=== PATIENT | female | born 1945 | race Caucasian/White ===

== ENCOUNTER 2024-11-13 09:40 | Outpatient (OUT) | payer MEDICARE, SELFPAY ==
--- NOTE | 2024-11-11 11:21 | V.VEINS.HP ---
Vital Signs 11/13/24 09:57 Height 4 ft 11 in Weight 49.895 kg BMI 22.2 BP 112/62 BP Location Left Brachial BP Position Sitting BP Cuff Size Adult BP Source Automatic Cuff Respiration 18 Pulse 56 L Pulse Source Monitor Pulse Oximetry (%) 99 Oxygen Delivery Method Room Air Varicose Veins Patient is a 79 year old female in this day as a referral from Dr. Ayers secondary to varicose vein disease, edema, and pain to bilateral lower legs. Patient c/o bilateral leg pain and achiness and heaviness for approximately one year. Patient as not worn bilateral leg knee high compression stockings, yet is willing to purchase them and wear them accordingly. Patient has a family history varicose vein disease in her mother. Patient has not had any varicose vein treatments nor has she had any issues with blood clots in the past. Zhao Scott MD personally performed the services described in this documentation, as scribed by Chapito Taylor RN in my presence and it is both accurate and complete. IChapito RN, am scribing for, and in the presence of, Dr. Zhao Kumar and in the presence of the patient. thigh: bilateral (symptoms left leg > right leg), knee: bilateral, calf: bilateral, ankle: bilateral and hines: bilateral aching, dull and tender 8 one year Worsened in recent months: Yes standing analgesics and elevating extremities Reports fatigue, heaviness and limb pain History of lower extremity trauma: No Superficial thrombophlebitis: No Family history of varicose veins: yes Has patient had previous lower extremity venous surgery: No Patient has previously received the following treatment(s) for lower extremity varicose veins: Reports none Does patient have a history of : yes Does patient intend to have future pregnancies: no Has patient had lower extremity venous scan with relux testing: No Support hose used: No Problems walking or doing physical activity: Yes How does it affect you: often has to set and elevate legs due to pain Do you walk much: Yes Do you stand much: Yes Review of Systems ROS Narrative Zhao Scott MD personally performed the services described in this documentation, as scribed by Chapito Taylor RN in my presence and it is both accurate and complete. Chapito Scott RN, am scribing for, and in the presence of, Dr. Zhao Kumar and in the presence of the patient. 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 - Other diseases of salivary glands (ICD-10) delivery delivered ?O82 - Encounter for delivery without indication (ICD-10) Cataract ?H26.9 - Unspecified cataract (ICD-10) Thrombocytopenia ?D69.6 - Thrombocytopenia, unspecified (ICD-10) Osteopenia ?M85.80 - Other specified disorders of bone density and structure, unspecified site (ICD-10) Lymphoma ?C85.90 - Non-Hodgkin lymphoma, unspecified, unspecified site (ICD-10) Lumbar radiculopathy ?M54.16 - Radiculopathy, lumbar region (ICD-10) Lumbago ?M54.50 - Low back pain, unspecified (ICD-10) Hyperlipidemia ?E78.5 - Hyperlipidemia, unspecified (ICD-10) Hypertension ?I10 - Essential (primary) hypertension (ICD-10) Cerumen impaction ?H61.20 - Impacted cerumen, unspecified ear (ICD-10) Arthralgia ?M25.50 - Pain in unspecified joint (ICD-10) Anxiety ?F41.9 - Anxiety disorder, unspecified (ICD-10) Varicose veins of bilateral lower extremities with pain ?I83.813 - Varicose veins of bilateral lower extremities with pain (ICD-10) Surgical History (Updated 11/13/24 @ 07:37 by Chapito Taylor) History of tonsillectomy and adenoidectomy ?Z90.89 - Acquired absence of other organs (ICD-10) H/O: hysterectomy ?Z90.710 - Acquired absence of both cervix and uterus (ICD-10) History of cholecystectomy ?Z90.49 - Acquired absence of other specified parts of digestive tract (ICD-10) Hx of appendectomy ?Z90.49 - Acquired absence of other specified parts of digestive tract (ICD-10) Family History (Updated 11/13/24 @ 10:08 by Chapito Taylor) Other Family history of cancer Family history of hypertension Pain due to varicose veins of both lower extremities Social History (Updated 11/13/24 @ 10:09 by Chapito Taylor) Within the past year, how often did you have a drink containing alcohol: never Score interpretation: A score less than 3 is consistent with normal alcohol consumption. Smoking status: Never smoker Non-prescribed substance use: denies use Meds Home Medications and Allergies Home Medications ?Medication ?Instructions ?Recorded ?Confirmed ?Type alendronate 70 mg tablet 70 mg PO QWEEK 11/13/24 11/13/24 History calcium citrate 150 mg capsule mg PO 11/13/24 History magnesium glycinate (LC-655) mg PO 11/13/24 History metoprolol tartrate 50 mg tablet 50 mg PO BID 11/13/24 11/13/24 History pravastatin 20 mg tablet 20 mg PO DAILY 11/13/24 11/13/24 History Allergies Allergy/AdvReac Type Severity Reaction Status Date / Time No Known Drug Allergies Allergy Verified 11/13/24 07:40 Exam Narrative Exam Narrative: Zhao Scott MD personally performed the services described in this documentation, as scribed by Chapito Taylor RN in my presence and it is both accurate and complete. Chapito Scott RN, am scribing for, and in the presence of, Dr. Zhao Kumar and in the presence of the patient. Constitutional Documenting provider has reviewed patient's vital signs: yes Common normals: oriented x3 Cardio Peripheral pulses: posterior tibial pulses present and dorsalis pedis pulses present Extremity Common normals: normal capillary refill General: calf tenderness and edema Right lower extremity: lower leg Right lower leg: inspection and palpation Left lower extremity: lower leg Left lower leg: inspection and palpation Neuro Common normals: oriented x3 Results Additional Findings Additional findings: Bilateral leg reflux u/s reveals no significant varicose vein disease noted. Zhao Scott MD personally performed the services described in this documentation, as scribed by Chapito Taylor RN in my presence and it is both accurate and complete. Chapito Scott RN, am scribing for, and in the presence of, Dr. Zhao Kumar and in the presence of the patient. Assessment and Plan Assessment and Plan (1) Varicose veins of bilateral lower extremities with pain: Plan Plan is for patient to f/u in future as necessary. Zhao Scott MD personally performed the services described in this documentation, as scribed by Chapito Taylor RN in my presence and it is both accurate and complete. Chapito Scott RN, am scribing for, and in the presence of, Dr. Zhao Kumar and in the presence of the patient.
--- NOTE | 2024-11-11 11:46 | P.DS_ITS ---
Discharge Plan Discharge Disposition: Home, Self-Care Plan of Treatment: f/u in future as necessary. Print Language: Amharic
--- NOTE | 2024-11-13 09:52 | VEIN_ITS ---
Patient Name: CATALINA CASE MR#: [id number] : 1945 Exam Date: 11/13/2024 Ordering Doctor: DR ZHAO KUMAR M.D. RADIOLOGY REPORT PROCEDURE: VC EXT VENOUS REFLUX AMY LMTD COMPARISON: None. INDICATIONS: I83.813 Bilateral painful varicose veins TECHNIQUE: Duplex imaging of the lower extremity to assess the deep and superficial venous system for the presence of deep or superficial venous incompetence and to document the location and severity of disease. The study includes evaluation of the great saphenous vein (GSV), anterior accessory saphenous vein (AASV) and small saphenous vein (SSV). Patient scanned in reverse Trendelenburg and standing. FINDINGS: RIGHT LOWER EXTREMITY: Saphenofemoral Junction Reflux: Yes 5.0mm 0.9 sec GSV: Diam (mm) Reflux/ Time (sec) Proximal Thigh 1.8 Yes 0.6 Mid Thigh 1.8 No Distal Thigh 1.3 No Prox Calf 1.2 No Mid Calf 0.9 Saphenopopliteal Junction Reflux: 2.4mm No SSV: Proximal Calf 1.9 No Mid Calf 2.5 No AASV: Proximal Thigh 1.7 No Mid Thigh 0.7 No Distal Thigh Thrombi: No acute or chronic thrombus visualized Compressibility: Normal Flow: Normal Preforator: Dist/med calf 1.5mm with 0s reflux. Tech Note: Patent varicose vein medial knee 2.4mm with 0.6s reflux. LEFT LOWER EXTREMITY: Saphenofemoral Junction Reflux: Yes 7.3 mm 2.0 sec GSV: Diam (mm) Reflux/Time (sec) Proximal Thigh 5.6 Yes 0.7 Mid Thigh 2.8 No Distal Thigh 2.2 Yes 0.9 Prox Calf 2.7 No Mid Calf 2.3 No Saphenopopliteal Junction Relux: 3.7 mm No SSV: Proximal Calf 1.7 Mid Calf 1.8 No AASV: Not present Thrombi: No acute or chronic thrombus Compressibility: Normal Flow: Normal Vocal Artist: Dist/med calf 2.5mm with 0s reflux. Tech Note: Incompetent GSV. Patent varicose vein mid/med calf 2.3mm with 0.7s reflux. CONCLUSION: Mild venous insufficiency bilateral great saphenous veins without dilatation. Mild bilateral saphenofemoral junction reflux No significant varicose veins Dictated by: Zhao Kumar MD on 11/13/2024 at 10:45 Approved by: Zhao Kumar MD on 11/13/2024 at 10:50
--- NOTE | 2024-11-13 09:52 | VEIN_ITS ---
Patient Name: CATALINA CASE MR#: [id number] : 1945 Exam Date: 11/13/2024 Ordering Doctor: DR ZHAO KUMAR M.D. RADIOLOGY REPORT PROCEDURE: [facility] - OFFICE VISIT INITIAL COMPARISON: None. PROGRESS NOTES: 79-year-old female referred by Dr. Ayers from [place] with lower extremity varicose veins, subcutaneous edema and bilateral lower pain. The patient's pain has significantly increased over the past few months, occurring after she had basal cell carcinoma surgery on the right neck. The patient's symptoms are not changed by leg position or fact it by sitting or standing. The patient has not worn compression stockings. The patient denies any signs and symptoms to suggest arterial ischemia. The patient describes a family history significant for cancer, hypertension and varicose veins. Current medical history significant for parotid mass, cataracts, thrombocytopenia, osteopenia, lymphoma, lumbar radiculopathy and back pain, hyperlipidemia, hypertension, arthralgia and anxiety. Surgical history significant for tonsillectomy, hysterectomy, cholecystectomy and appendectomy. See separate list for medication. Patient never drinks per the patient has never smoked. No illicit drug use. No history of deep venous thrombus or pulmonary embolus. See separate history and physical for medication list. No prior treatment for varicose or spider veins. No prior use of compression stockings. After review of nurse notes, history and physical exam I discussed at length the pathophysiology of venous hypertension and possible treatments, therapies and strategies available. We discussed at length the importance of elevating the lower extremities above the level of the heart, increased physical activity and compression stocking use. I discussed with the patient that she had very minimal bilateral venous insufficiency in the great saphenous veins without dilatation. The patient does not require treatment of saphenous veins at this time. The patient has scattered bilateral reticular and spider veins and was offered injection sclerotherapy which she declined at this time. The patient was encouraged to follow-up after discovered resolution of her leg pain if desired. She did express interest in treatments in the future. Ultrasound venous reflux study performed the same day was discussed at length with the patient. The report demonstrates minimal bilateral great saphenous vein venous insufficiency. No significant varicose veins. PHYSICAL EXAM: The right leg demonstrates scattered reticular and spider veins. No hemosiderin staining, subcutaneous edema or active ulceration. The left leg demonstrates scattered reticular and spider veins. No hemosiderin staining, subcutaneous edema or active ulceration Both thighs, legs and feet were symmetrically warm to the touch. Good posterior tibial and dorsalis pedis pulses were present bilaterally. VEIN/VC Facility EST Comprehensive IMPRESSION: 1. No significant saphenous vein venous insufficiency 2. No significant lower extremity incompetent varicose veins. There are scattered bilateral reticular and spider veins 3. No lower extremity subcutaneous edema 4. No flow significant arterial disease 5. CEAP: C1, Ep, As, Pr PLAN: 1. Follow-up with her primary care physician for evaluation of lower extremity pain possibly musculoskeletal or nerve related 2. Increased physical activity which the patient has ceased following her surgery 3. Follow-up for treatment of reticular and spider veins as desired Nurse notes, history and physical were reviewed and confirmed, see attached forms. The nurse was present throughout the physical exam and consultation Dictated by: Zhao Kumar MD on 11/13/2024 at 11:15 Approved by: Zhao Kumar MD on 11/13/2024 at 11:32
[2024-11-13 09:57] VITALS: BP 112/62; PULSE 56; O2SAT 99; BMI 22.2
== END 2024-11-13 09:41 | disposition home or self-care (01) ==
LOC: VC 09:44
PROVIDERS: PCP Family Medicine; Visit Provider Radiology Diagnostic Radiology
DX: I83.813 Varicose veins of bilateral lower extremities with pain (principal)
CPT/HCPCS: 93970; G0463